=== PATIENT | female | born 1985 | race Caucasian/White ===

== ENCOUNTER 2019-09-10 09:39 | Outpatient (CLI) | payer BC, OTHER ==
[2019-09-10] MEDS ORDERED: LEVO137T3 PO (10:09)
[2019-09-10] MEDS ORDERED: MAGN100T6 PO (10:23)
== END 2019-09-10 23:59 | disposition home or self-care (01) ==
LOC: STAR 09:39
PROVIDERS: ATTEND Obstetrics & Gynecology
DX: Z01.818 Encounter for other preprocedural examination (principal)
CPT/HCPCS: 36415; 84703

== ENCOUNTER 2020-08-24 11:24 | Emergency (ER) | payer BC, OTHER ==
[~2020-08-24] VITALS: Ht 165.1 cm; Wt 74.9 kg
[~2020-08-24 11:24] MED LIST: LEVO137T3 PO; MAGN100T6 PO
[2020-08-24] MEDS ORDERED: SODIUM CHLORIDE FLUSH 10ML SYR IVF ONE (12:00)
--- NOTE | 2020-08-24 12:00 | NUR ---
IV PLACED, LABS DRAWN WITH START. URINE COLLECTED/SENT TO LAB. WARM BLANKET PROVIDED, CALL LIGHT WITHIN REACH. PT UPDATED ON POC.
[2020-08-24 12:10] LABS: BASOPHILS % (AUTO) 1 % (0-1); EOSINOPHILS % (AUTO) 0 % (1-7); LYMPHOCYTES % (AUTO) 12 % (22-44); MEAN CORPUSCULAR HEMOGLOBIN 31.2 pg (27.0-34.8); MEAN PLATELET VOLUME 8.2 fL (7.4-10.4); MONOCYTES % (AUTO) 5 % (2-9); NEUTROPHILS % (AUTO) 82 % (42-75); PLATELET COUNT 256 x10^3/uL (130-400)
[2020-08-24 12:13] LABS: MD NO
[2020-08-24 12:22] LABS: ALBUMIN 4.4 g/dL (3.4-5.0); ANION GAP 7 mmol/L (5-15); CALCIUM 9.3 mg/dL (8.5-10.1); CHLORIDE 107 mmol/L (98-107); CREATININE 0.95 mg/dL (0.55-1.02)
--- NOTE | 2020-08-24 12:23 | NUR ---
PT IN MRI.
[2020-08-24 12:40] LABS: MICROSCOPIC AUTO
[2020-08-24] MEDS ORDERED: GADOTERATE 7.5 MMOL/15 ML VIAL ONE (12:52)
--- NOTE | 2020-08-24 13:15 | NUR ---
LAB CALLED TO INFORM OF ADD ON HCG.
--- NOTE | 2020-08-24 13:34 | NUR ---
PT BACK FROM MRI. AWAITING READING. VSS/UPDATED IN COMPUTER.
--- NOTE | 2020-08-24 13:36 | NUR ---
MRI READ BACK, PT FOR RECHECK.
[2020-08-24] MEDS ORDERED: CEFAZOLIN PMX 1GM/50ML 50 ML IV ONE (15:00)
[2020-08-24] MEDS ORDERED: CEFAZOLIN PMX 1GM/50ML 50 ML ONE (15:22)
--- NOTE | 2020-08-24 15:34 | NUR ---
ANCEF INFUSING PER ERP ORDER. CALL LIGHT WITHIN REACH. VSS.
--- NOTE | 2020-08-24 15:55 | NUR ---
Report from pablito Bullock.
--- NOTE | 2020-08-24 15:56 | NUR ---
REPORT TO DARIO, TRANSFER OF CARE AT THIS TIME.
[2020-08-24 16:43] VITALS: BP 97/58
== END 2020-08-24 16:46 | disposition home or self-care (01) ==
LOC: ED 13:42
DX: L02.91 Cutaneous abscess, unspecified (principal)
CPT/HCPCS: 36415; 72197; 80048; 81001; 82040; 84703; 85025; 96374; 99285; A9575; J0690; 96365; 99284